=== PATIENT | male | born 1945 | race Caucasian/White ===

== ENCOUNTER 2022-02-14 16:49 | Emergency (ER) | payer MEDICARE ==
[~2022-02-14] VITALS: Ht 167.6 cm; Wt 77.1 kg
[2022-02-14] MEDS ORDERED: METFORMIN HCL1000 MG PO (17:03)
[2022-02-14] MEDS ORDERED: EPIPEN 2-P0.3 MG/0.3 IM (17:04)
[2022-02-14] MEDS ORDERED: OMEPRAZOLE20 MG PO (17:05)
[2022-02-14] MEDS ORDERED: FLOMAX0.4 MG PO (17:05)
[2022-02-14] MEDS ORDERED: NEURONTIN300 MG PO (17:06)
[2022-02-14] MEDS ORDERED: DULOXETINE HCL30 MG PO (17:06)
[2022-02-14] MEDS ORDERED: NORVASC10 MG PO (17:06)
[2022-02-14] MEDS ORDERED: ASPIRIN81 MG PO (17:06)
[2022-02-14] MEDS ORDERED: B12 ACTIVE1000 MCG PO (17:07)
== END 2022-02-14 19:35 | disposition home or self-care (01) ==
LOC: ED 16:49
DX: T63.441A Toxic effect of venom of bees, accidental (unintentional), initial encounter (principal); L53.0 Toxic erythema; M79.631 Pain in right forearm; E11.9 Type 2 diabetes mellitus without complications; Z79.84 Long term (current) use of oral hypoglycemic drugs; Z79.899 Other long term (current) drug therapy; Z79.82 Long term (current) use of aspirin; Z91.038 Other insect allergy status; Y92.9 Unspecified place or not applicable

== ENCOUNTER 2025-01-16 09:33 | Emergency (ER) | payer MEDICARE ==
[~2025-01-16] VITALS: Ht 167.6 cm; Wt 80.5 kg
[~2025-01-16 09:33] MED LIST: ASPIRIN81 MG PO; B12 ACTIVE1000 MCG PO; DULOXETINE HCL30 MG PO; EPIPEN 2-P0.3 MG/0.3 IM; FLOMAX0.4 MG PO; METFORMIN HCL1000 MG PO; NEURONTIN300 MG PO; NORVASC10 MG PO; OMEPRAZOLE20 MG PO
[2025-01-16] MEDS ORDERED: TETRACAINE HCL 0.5% 4 ML BTL OD PRN (10:00)
[2025-01-16 10:21] LABS: BASOPHILS 0.8 % (0.2-1.2); EOSINOPHILS 1.9 % (0.8-7.0); HEMATOCRIT 48.3 % (40.1-51.0); HEMOGLOBIN 15.7 g/dL (13.7-17.5); LYMPHOCYTES 24.5 % (21.8-53.1); MCH 30.1 PG (25.7-32.2); MCHC 32.5 g/dL (32.3-36.5); MCV 92.5 fL (79.0-92.2); MONOCYTES 7.2 % (5.3-12.2); NEUTROPHILS 65.3 % (34.0-67.9); PLATELET COUNT 291 K/uL (163-337); RBC 5.22 M/uL (4.63-6.08)
[2025-01-16 10:26] LABS: INR 1.05 (0.80-1.30); PROTIME 13.1 Sec (11.2-14.2)
[2025-01-16 10:31] LABS: ALBUMIN 3.9 g/dL (3.4-5.0); BILIRUBIN, TOTAL 0.7 mg/dL (0.2-1.0); BUN/CREATININE RATIO 11.88 (6.0-28.6); CALCIUM 9.3 mg/dL (8.5-10.1); CREATININE, SERUM 1.01 mg/dL (0.70-1.30); PROTEIN, TOTAL 7.8 g/dL (6.4-8.2)
[2025-01-16] MEDS ORDERED: LABETALOL HCL 20 MG/4 ML VIAL IV ONE (10:45)
[2025-01-16] MEDS ORDERED: ondansetron HCL 4 MG/2 ML VIAL IV ONE (11:00)
[2025-01-16] MEDS ORDERED: KETOROLAC TROMETHAMINE 30 MG/ML VIAL IV ONE (11:15)
[2025-01-16] MEDS ORDERED: ACETAMINOPHEN 500 MG TAB PO ONE (11:30)
[2025-01-16] MEDS ORDERED: SODIUM CHLORIDE 0.9% 500 ML IV PRN (12:00)
[2025-01-16] MEDS ORDERED: METOCLOPRAMIDE HCL 10 MG/2 ML SDV IV ONE (12:00)
[2025-01-16] MEDS ORDERED: diphenhydrAMINE HCL 50 MG/ML VIAL IV ONE (12:00)
[2025-01-16] MEDS ORDERED: LORazepam 2 MG/ML VIAL IV ONE (13:00)
[2025-01-16 15:17] VITALS: BP 168/59
== END 2025-01-16 15:19 | disposition home or self-care (01) ==
LOC: ED 09:33
PROVIDERS: Emergency Medicine
DX: R51.9 Headache, unspecified (principal); E11.9 Type 2 diabetes mellitus without complications; Z79.82 Long term (current) use of aspirin; Z79.84 Long term (current) use of oral hypoglycemic drugs; Z79.899 Other long term (current) drug therapy; Z91.030 Bee allergy status
CPT/HCPCS: 36415; 70450; 80053; 85025; 85610; 96361; 96374; 96375; 99284-25; A9270; J1200; J1885; J2060; J2405; J2765; J7040